=== PATIENT | male | born 1980 | race Caucasian/White ===

== ENCOUNTER 2019-02-13 22:15 | Emergency (ER) | payer BC, OTHER ==
[2019-02-13 23:16] VITALS: O2SAT 97
--- NOTE | 2019-02-13 23:23 | ERPHSYRPT ---
- History of Present Illness Time Seen by Provider: 02/13/19 23:17 Source: patient Exam Limitations: no limitations Patient Subjective Stated Complaint: Right foot pain/injury Triage Nursing Assessment: Patient brought back to ED via w/c and tranferred self per self. Patient complains of top of right foot injury after a 2 X 10 2 X 4 wood that was water soaked fell on his right foot. Patient states injury happened at 1330 and has gotten worse. Patient unable to bear weight to right foot. Right foot noted to be swollen and painful 10/10 with small indention noted in the middle of foot. Physician History: 38-year-old white male arrives with complaint of pain in the dorsal right foot symptoms since 1:00 this afternoon. According to the patient he had a 2 x 10 fall onto his dorsal right foot he has been having increasing pain in his right foot worse with walking. Past medical history includes back pain. Past surgical history includes knee surgery. Method of Injury: direct blow (2x10 fell and struck patient's right foot) Occurred: this afternoon (1:30 this afternoon) Quality: constant Severity of Pain-Max: moderate Severity of Pain-Current: moderate Lower Extremities Pain: foot: right Modifying Factors: Improves With: other (walking) Associated Symptoms: other ( pain with walking) Allergies/Adverse Reactions: No Known Drug Allergies Allergy (Unverified 02/13/19 23:04) Home Medications: No Reportable Medications [No Reported Medications] 02/13/19 [History] Hx Pneumococcal Vaccination/Date Given: No Immunizations Up to Date: Yes - Review of Systems Constitutional: No Fever, No Chills Eyes: No Symptoms Ears, Nose, & Throat: No Symptoms Respiratory: No Cough, No Dyspnea Cardiac: No Chest Pain, No Edema, No Syncope Abdominal/Gastrointestinal: No Abdominal Pain, No Nausea, No Vomiting, No Diarrhea Genitourinary Symptoms: No Dysuria Musculoskeletal: Other (right foot pain) Skin: No Rash Neurological: No Dizziness, No Focal Weakness, No Sensory Changes Psychological: No Symptoms Endocrine: No Symptoms All Other Systems: Reviewed and Negative - Past Medical History Pertinent Past Medical History: No Neurological History: No Pertinent History ENT History: No Pertinent History Cardiac History: No Pertinent History Respiratory History: No Pertinent History Endocrine Medical History: No Pertinent History Musculoskeletal History: No Pertinent History GI Medical History: No Pertinent History History: No Pertinent History Psycho-Social History: No Pertinent History Male Reproductive Disorders: No Pertinent History - Past Surgical History Past Surgical History: Yes Neuro Surgical History: No Pertinent History Cardiac: No Pertinent History Respiratory: No Pertinent History Gastrointestinal: No Pertinent History Genitourinary: No Pertinent History Musculoskeletal: Orthopedic Surgery Male Surgical History: No Pertinent History Other Surgical History: jason knee surgery, left wrist surgery - Social History Smoking Status: Current every day smoker How long have you smoked: years Exposure to second hand smoke: Yes Drug Use: none Patient Lives Alone: Yes - Nursing Vital Signs Nursing Vital Signs: Initial Vital Signs Temperature 98.1 F 02/13/19 23:04 Pulse Rate 78 02/13/19 23:04 Respiratory Rate 18 02/13/19 23:04 Blood Pressure 145/78 02/13/19 23:04 O2 Sat by Pulse Oximetry 97 02/13/19 23:04 Pain Scale Pain Intensity 10 - Physical Exam General Appearance: mild distress, alert Eyes, Ears, Nose, Throat Exam: moist mucous membranes Neck Exam: non-tender, supple Cardiovascular/Respiratory Exam: chest non-tender, normal breath sounds, regular rate/rhythm, no respiratory distress Gastrointestinal/Abdominal Exam: non-tender, guarding Back Exam: normal inspection, No vertebral tenderness Hips Exam: bilateral: non-tender, normal inspection, normal range of motion, no evidence of injury Legs Exam: bilateral leg: non-tender, normal inspection, normal range of motion , no evidence of injury Knees Exam: bilateral knee: non-tender, normal inspection, normal range of motion, no evidence of injury Ankle Exam: bilateral ankle: non-tender, normal inspection, normal range of motion, no evidence of injury Foot Exam: right foot: other (right tender coordinator dorsally with palpation. Decreased range of motion right foot secondary to pain.Good capillary refill all toes. Sensation intact to all toes. Right dorsal pedal posterior tibial pulses two over four), left foot: non-tender, normal inspection, normal range of motion, no evidence of injury DTR - Lower Extremities Exam: ankle (R): 2+, ankle (L): 2+ Neuro/Tendon Exam: normal sensation, normal motor functions Mental Status Exam: alert, oriented x 3, cooperative Skin Exam: normal color, warm, dry SpO2 Interpretation: normal (97%) SpO2: 97 - Course Nursing assessment & vital signs reviewed: Yes - Radiology Exams Right Foot X-ray Interpretation: Interpreted by me, Negative, No Fracture, No Subluxation Ordered Tests: Active Orders 24 hr Category Date Time Status Minesh Bandage Application -[facility] STAT Care 02/14/19 01:00 Active Crutches STAT Care 02/14/19 01:00 Active Splint STAT Care 02/14/19 01:00 Active FOOT (MINIMUM 3 VIEWS) Stat Exams 02/14/19 00:23 Taken - Progress Progress: improved Progress Note: 02/14/19 01:01 38-year-old white male arrives with complaint of pain in his right foot since 1: 30 PM yesterday he states that he dropped a 2 x 10 onto the dorsum of his right foot. He has been having pain in his right foot which is increasing with walking throughout the day. On physical examination patient is tender in the right dorsal foot he has good capillary refill to all right toes decreased range of motion to the right foot secondary to pain dorsal pedal posterior tibial pulses are intact two over four the sensation intact to all toes. X-ray of the right foot (my read and (no fractures no subluxation.) Impression contusion right foot plan. Will place an Minesh wrap on the patient's right foot give patient a postop shoe. Patient was offered pain medication he prefers not to have any of these will have patient use Advil [id number] every 6 hours or Tylenol every 4 hours as needed for pain. Will give patient crutches weightbearing as tolerated. Patient does not want a work slip at this time. - Departure Departure Disposition: Home Clinical Impression: Right foot pain Contusion of right foot Qualifiers: Encounter type: initial encounter Qualified Code(s): S90.31XA - Contusion of right foot, initial encounter Condition: Fair Critical Care Time: No Referrals: DARY MERRITT [Primary Care Provider] - Instructions: Contusion (DC) Additional Instructions: Return home. Ice and elevate right foot 24-48 hours. Wear postop shoe or hard soled shoe. Crutches weightbearing as tolerated. Advil [id number] 3 tablets with food every 6 hours as needed for pain., Tylenol every 4 hours as needed for pain. Followup with your family symptoms are worse, no better in 48 hours, or persist longer than one week. Return for acute distress or for severe symptoms. Your x-rays have been preliminarily read they will be reread tomorrow you'll be contacted if any discrepancies are noted.
[2019-02-14 01:14] VITALS: BP 136/87; PULSE 82
--- NOTE | 2019-02-14 09:37 | XRAY ---
Indication: Pain following injury. Comparison: None 3 nonweightbearing views of the right foot demonstrates tiny posterior heel spur. No other bony, articular, or soft tissue abnormalities.
== END 2019-02-14 01:17 | disposition home or self-care (01) ==
LOC: ED 22:15
DX: M79.671 Pain in right foot (principal); S90.31XA Contusion of right foot, initial encounter; W20.8XXA Other cause of strike by thrown, projected or falling object, initial encounter; Y93.9 Activity, unspecified; Y92.9 Unspecified place or not applicable
CPT/HCPCS: 73630; 99284